=== PATIENT | female | born 1960 | race Hispanic/Latino ===

== ENCOUNTER 2017-07-18 07:11 | Day surgery (SDC) | payer OTHER ==
[~2017-07-18] VITALS: Ht 154.9 cm; Wt 76.3 kg
[~2017-07-18 07:11] MED LIST: ASPIRIN E.C.81 M1 PO; ATENOLOL50 MG PO; BENICAR20 MG; BENICAR20 MG PO; CELEXA10 MG PO; COLACE100 MG PO; ERGOCALCIF50000 UNIT PO; Glucophage PO; LEXAPRO10 MG PO; LIPITOR40 MG PO; LO-DOSE ASPIRIN81 M1 PO; Lipitor PO; METFORMIN HCL1000 MG PO; METFORMIN HCL500 MG PO; MILK OF MAGN PO; TRIBENZOR 20-51 EAC1 PO; TYLENOL EXTRA500 MG PO; TYLENOL REGULA325 MG PO; ULTRAM50 MG PO; VOLTAREN50 MG PO; ZANTAC150 MG PO
[2017-07-18 07:52] LABS: POINT-OF-CARE METER ID UU14174212
[2017-07-18] MEDS ORDERED: CALCIUM 500 MG1 EACH PO (07:56)
[2017-07-18] MEDS ORDERED: ALTOPREV20 MG PO (07:57)
[2017-07-18] MEDS ORDERED: XANAX0.5 MG PO (07:58)
[2017-07-18 07:59] VITALS: BP 141/72
[2017-07-18 13:29] LABS: POINT-OF-CARE METER ID UU13113675; POINT-OF-CARE USER ID 515036437
[2017-07-18 14:30] VITALS: BP 180/88
[2017-07-18 16:50] VITALS: BP 150/78
[2017-07-18 17:06] LABS: POINT-OF-CARE METER ID UU14162508
[2017-07-18 20:04] VITALS: BP 128/64
[2017-07-18 22:14] LABS: POINT-OF-CARE METER ID UU14162508
[2017-07-18 23:29] VITALS: BP 131/63
[2017-07-19 03:09] VITALS: BP 131/63
[2017-07-19 05:52] LABS: HEMATOCRIT 34.2 % (36.0-46.0); MCH 30.1 PG (29.0-34.0); MCV 91.2 FL (83-99); MEAN PLAT.VOLUME 10.3 uM^3 (9.5-12.4); PLATELET COUNT 279 K/uL (156-360); RBC DIS.WIDTH-CV 12.9 % (11.8-14.6); RBC DIS.WIDTH-SD 42.5 % (39-53); RED BLOOD COUNT 3.75 M/uL (3.80-5.20); WHITE BLOOD COUNT 8.3 K/uL (4.1-10.2)
[2017-07-19 06:46] LABS: POINT-OF-CARE METER ID UU14208750
[2017-07-19 07:15] VITALS: BP 130/68
[2017-07-19] MEDS ORDERED: ENDOCET 5-3251 EACH PO (08:25)
== END 2017-07-19 11:00 | disposition home or self-care (01) ==
LOC: SDC → 2SOUTH 13:33 → 2EAST 13:33 → ENRESERV 13:36 → SDC 14:26 → 2EAST 14:34 → SDC 15:31 → 2EAST 07-19 11:00
PROVIDERS: Surgery
PROC: 0HTV0ZZ Resection of Bilateral Breast, Open Approach (ICD-10-PCS; principal; 2017-07-18)
DX: C50.911 Malignant neoplasm of unspecified site of right female breast (principal); Z15.01 Genetic susceptibility to malignant neoplasm of breast; I10 Essential (primary) hypertension; E11.9 Type 2 diabetes mellitus without complications; K21.9 Gastro-esophageal reflux disease without esophagitis; E78.01 Familial hypercholesterolemia; Z79.84 Long term (current) use of oral hypoglycemic drugs; Z79.82 Long term (current) use of aspirin
CPT/HCPCS: 82948; 85027; 88307; G0378; J0131; J0330; J1100; J1170; J1815; J2250; J2405; J2710; J3010; J7120; S0020